=== PATIENT | female | born 1985 | race Caucasian/White ===

== ENCOUNTER 2016-09-13 21:06 | Emergency (ER) | payer MEDICAID, OTHER ==
[~2016-09-13] VITALS: Ht 149.9 cm; Wt 80.0 kg
[~2016-09-13 21:06] MED LIST: ACET500C5 PO; GUAI118L94 PO; HC1C30 TOP; HYDR-845 PO; OMEP20CA9 PO; SODI44SP11 NS
[2016-09-13 21:09] VITALS: Ht 149.9 cm; Wt 80.0 kg
[2016-09-13] MEDS ORDERED: ACETAMINOPHEN 500 MG TAB PO STA (22:01)
[2016-09-13] MEDS ORDERED: D-ME473S18 PO (22:43)
[2016-09-13] MEDS ORDERED: AZIT250T94 PO (22:43)
--- NOTE | 2016-09-13 23:06 | ERD ---
ER Documentation Chief Complaint Date/Time DATE: 09/13/16 TIME: 23:04 Chief Complaint FEVER AND COUGH X3 DAYS. HPI This is a 31-year-old female presents to the ER with a fever and cough for the last 3 days. Cough is productive and constant, it is worse at night. Patient denies any chest pain or shortness of breath. Fever has been spiking between 103 and 104, patient takes Tylenol and fever gets better however it always returns. She is also complaining of bilateral ear pain and sore throat. There are no sick contacts at home. Patient has not tried anything for her cough. ROS 12 point review of systems was done, all negative except per HPI. Medications Home Meds Active Scripts Dextromethorphan Hb-Promethazine Hcl (Promethazine DM Syrup) 473 Ml Syrup, 10 ML PO Q6H Y for COUGH, #4 OZ Prov:TARAS DEL RIO 09/13/16 Azithromycin* (Zithromax*) 250 Mg Tablet, 250 MG PO .ZPACK DIRECTED, #6 TAB TAKE 500 MG (2 TABS) THE FIRST DAY THEN 250 MG (1 TAB) DAYS 2-5 Prov:TARAS DEL RIO 09/13/16 Hydroxyzine Hcl* (Atarax*) 50 Mg Tab, 50 MG PO Q8H Y for ITCHING for 10 Days, TAB Prov:BRENDA BARRIENTOS NP 07/16/15 Hydrocortisone* Topical (Hydrocortisone* Topical) 1%-28.35 Gm Cream..g., 1 APPLIC TOP Q6 Y for ITCHING, #1 TUB Prov:BRENDA BARRIENTOS NP 07/16/15 Omeprazole* (Prilosec*) 20 Mg Capsule.dr, 20 MG PO DAILY for 14 Days, CAP Prov:ABNER WHYTE NP 02/07/15 Guaifenesin-Codeine Phosphate* (Guaifenesin* with Codeine Liq) 120 Ml Liquid, 5 ML PO Q4H Y for COUGH, #120 ML Prov:ABNER WHYTE PUBLICATION DESIGNER 10/24/14 Sodium Chloride (Saline Nasal Dagmar) 45 Ml Dagmar, 2 SPR NS Q2H Y for na, #1 BOT Prov:ABNER WHYTE NP 10/24/14 Acetaminophen* (Tylophen*) 500 Mg Capsule, 1 CAP PO Q6H Y for PAIN AND OR ELEVATED TEMP, #20 CAP Prov:ABNER WHYTE PUBLICATION DESIGNER 10/24/14 Allergies Allergies: Coded Allergies: Penicillins (Verified Allergy, Unknown, 03/01/14) PMhx/Soc Medical and Surgical Hx: pt denies Medical Hx, pt denies Surgical Hx History of Surgery: No Anesthesia Reaction: No Hx Neurological Disorder: No Hx Respiratory Disorders: No Hx Cardiac Disorders: No Hx Psychiatric Problems: No Hx Miscellaneous Medical Probl: No Hx Alcohol Use: No Hx Substance Use: No Hx Tobacco Use: No Smoking Status: Never smoker Physical Exam Vitals Vital Signs Date Time Temp Pulse Resp B/P Pulse Ox O2 Delivery O2 Flow Rate FiO2 09/13/16 21:09 99.3 106 20 132/78 96 Physical Exam GENERAL: The patient is well-developed, well-nourished, in no acute distress. NECK: Cervical spine is non tender with no step off. Supple, no nuchal rigidity HEENT: Atraumatic. Pupils equal, round and reactive to light. Extraocular muscles are grossly intact. Conjunctivae pink, no discharge. Bilateral erythematous TMs, no TM bulging. No mastoid tenderness. Tonsilar erythema with no exudates or uvular deviation. Clear rhinorrhea. RESPIRATORY: Clear to auscultation bilaterally. There are no rales, wheezes or rhonchi. HEART: Regular rate and rhythm. No murmurs, clicks, rubs or gallops. EXTREMITIES: No clubbing or cyanosis. Full range of motion. Grossly neurovascularly intact. NEUROLOGIC: Alert and oriented. Cranial nerves II through XII are intact. SKIN: There is no rash. The skin is warm and dry. Results 24 hrs Current Medications Medications (Trade) Dose Ordered Sig/Kevin Route PRN Reason Start Time Stop Time Status Last Admin Dose Admin Acetaminophen (Tylenol Tab) 1,000 mg ONCE STAT PO 09/13/16 22:01 09/13/16 22:15 DC 09/13/16 22:35 Procedures/MDM Differential diagnosis includes but is not limited to; Viral URI, allergic rhinitis, bronchitis, pertussis,pneumonia. Cough is likely viral in etiology. Clinical suspicion for pneumonia is low as patient appears well, is not hypoxic or in any respiratory distress. Additionally, patient does have otitis media. Suspicion for mastoiditis is low as there is no mastoid tenderness.. Plan was discussed with patient they understand and agree. Patient needs to follow up with PCP in 1-2 days or return to ER sooner if symptoms worsen. Departure Diagnosis: Primary Impression: Upper respiratory infection Additional Impression: Otitis media Condition: Stable Patient Instructions: Otitis Media, Abx Tx (Adult) Additional Instructions: Call your primary care doctor TOMORROW for an appointment during the next 1-2 days.See the doctor sooner or return here if your condition worsens before your appointment time. TARAS DEL RIO Sep 13, 2016 23:06
[2016-09-13 23:21] VITALS: BP 134/80; PULSE 70; RESP 20; TEMP 97.8
== END 2016-09-13 23:21 | disposition home or self-care (01) ==
LOC: FTE 21:06
DX: J06.9 Acute upper respiratory infection, unspecified (principal); H66.93 Otitis media, unspecified, bilateral
CPT/HCPCS: Z7502; Z7610; 99284

== ENCOUNTER 2018-12-04 02:02 | Emergency (ER) | payer MEDICAID ==
[~2018-12-04] VITALS: Ht 149.9 cm; Wt 85.1 kg
[~2018-12-04 02:02] MED LIST changes: +ALBU18HF INHALATION; +ALBU2.5V3 NEB; +AZIT250T PO; +BENZ-5 PO; +BENZ-6 PO; +D-ME473S18 PO; +GUAI5SYR2 PO; +PRED20TA PO
[2018-12-04 02:05] VITALS: Ht 149.9 cm; Wt 85.1 kg
[2018-12-04] MEDS ORDERED: DEXAMETHASONE 10 MG/ML 1 ML INJ IM STA (02:30)
[2018-12-04] MEDS ORDERED: ALBUTEROL 0.5% (NEB) 2.5 MG/0.5 ML AMP INH STA (02:30)
[2018-12-04 04:38] VITALS: BP 106/66; PULSE 17; RESP 18
== END 2018-12-04 04:37 | disposition home or self-care (01) ==
LOC: FTE 02:02
DX: J45.901 Unspecified asthma with (acute) exacerbation (principal)
CPT/HCPCS: 94644; 96372; J1100; Z7502; Z7610